=== PATIENT | female | born 2000 | race Caucasian/White ===

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

== ENCOUNTER 2020-01-18 19:56 | Emergency (ER) | payer SELFPAY ==
[2020-01-18 19:56] VITALS: BP 117/65; PULSE 107; RESP 15; TEMP 36.8; O2SAT 99; BMI 42.2
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
== END 2020-01-18 22:13 | disposition home or self-care (01) ==
LOC: ED 20:51
PROVIDERS: Emergency Provider Emergency Medicine
DX: S13.4XXA Sprain of ligaments of cervical spine, initial encounter (principal); S70.02XA Contusion of left hip, initial encounter; V89.2XXA Person injured in unspecified motor-vehicle accident, traffic, initial encounter
CPT/HCPCS: 70450; 72125; 73502; 99282

== ENCOUNTER 2020-02-20 16:50 | Emergency (ER) | payer BC, SELFPAY ==
[2020-02-20 16:50] VITALS: BP 132/73; PULSE 109; RESP 15; TEMP 36.2; O2SAT 100; BMI 29.2
--- NOTE | 2020-02-20 17:00 | ED.DCSUM_ITS ---
History of Present Illness Chief Complaint: Upper Extremity Injury Informant: Patient Onset: Today Narrative: Patient states she was kicked by a horse prior to arrival. The structure in the mid forearm on the right. Denies any other injuries. She is right-handed. Past Medical History - Allergies and Home Meds Allergies/Adverse Reactions: Allergies sulfamethoxazole [From Bactrim] Adverse Reaction (Verified 01/18/20 20:00) Hives trimethoprim [From Bactrim] Adverse Reaction (Verified 01/18/20 20:00) Hives Primary Care Physician: Care Physician,No Primary [Primary Care Provider] - Smoking Status: Never smoker Review of Systems General: Denies: Chills, Fever, Sweats Eyes: Denies: Visual changes - bilaterally, Diplopia ENT: Denies: Rhinorrhea, Sore throat Cardiovascular: Denies: Chest pain, Palpitations Respiratory: Denies: Dyspnea, Cough, Dyspnea on exertion Gastrointestinal: Denies: Abdominal pain, Nausea, Vomiting, Diarrhea, Melena, Hematochezia Genitourinary: Denies: Dysuria, Hematuria, Frequency Musculoskeletal: Reports: Extremity Pain. Denies: Back pain Skin: Denies: Rash, Wounds Neurological: Denies: Headache, Weakness, Numbness Physical Exam Vital Signs/Narrative: Vital Signs Temp Pulse Resp BP Pulse Ox 02/20/20 16:50 97.2 F L 109 H 15 132/73 H 100 Inital Vital Signs reviewed: Yes General: Well nourished, Well developed, No Acute Distress Head: Normocephalic, Atraumatic Eyes: Perrl, EOMI ENT: Moist mucous membranes, No rhinorrhea Neck: Supple, Nontender Cardiovascular: Regular rate, Regular rhythm, No murmurs Respiratory: No distress, CTA bilaterally, Chest nontender Abdomen: Soft, Nontender, Nondistended, Normal bowel sounds Back: Nontender, Normal Inspection Extremities: Tenderness - Patient has tenderness and swelling and contusion in the mid forearm on the medial posterior aspect. No obvious deformity. Limited range of motion in terms of supination and pronation. Skin: Normal color, No rash Neurological: Alert, Oriented x3, Cranial nerves II-XII grossly intact, Normal Strength, Normal Sensation Psychological: Normal affect, Normal Mood ED Disposition - Plan for ED Patient: Disposition: Home or Assisted Living Diagnosis: Ulna fracture Instructions: ED Fracture Upper Extremity Prescriptions: Hydrocodone Bitart/Apap 5-325 [[place] 5MG-325MG] 1 tablet PO Q6H PRN PRN 3 Days #12 tablet PRN Reason: Pain Transmission Status: Received by [id number] Referrals: Noa Padilla DO [STAFF PHYSICIAN] - (call to arrange follow up)
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
[2020-02-20 18:06] VITALS: BP 134/77; PULSE 68; RESP 15; O2SAT 97
[2020-02-20] MEDS: HYDROcodone Bitartrate/Apap 5/325 Tablet PO (18:10)
== END 2020-02-20 18:11 | disposition home or self-care (01) ==
LOC: ED 18:09
PROVIDERS: Emergency Provider Emergency Medicine
DX: S59.001A Unspecified physeal fracture of lower end of ulna, right arm, initial encounter for closed fracture (principal); W55.12XA Struck by horse, initial encounter
CPT/HCPCS: 29126; 29405; 73090; 99283